=== PATIENT | female | born 1985 | race Caucasian/White ===

== ENCOUNTER 2021-10-01 14:30 | Emergency (ER) | payer OTHER ==
[~2021-10-01] VITALS: Ht 157.5 cm; Wt 113.4 kg
--- NOTE | 2021-10-01 14:40 | NUR ---
BIBS FOR C/O CHEST PAIN SINCE YESTERDAY. IN ROOM AIR AND DENIES SOB. RESPIRATION REGULAR AND UNLABORED. ATTACHED TO THE MONITOR. WILL CONTINUE TO MONITOR THE PATIENT.
--- NOTE | 2021-10-01 15:20 | NUR ---
STUDY COORDINATOR AT THE BEDSIDE
--- NOTE | 2021-10-01 15:28 | NUR ---
US TECH AT THE BEDSIDE
[2021-10-01 15:58] LABS: BASOPHILS % (AUTO) 0.2 % (0.0-2.0); HEMATOCRIT 38 % (33-45); HEMOGLOBIN 11.9 g/dL (11.5-14.8); LYMPHOCYTES # (AUTO) 2.6 K/uL (0.8-4.8); LYMPHOCYTES % (AUTO) 22.3 % (20.0-44.0); MEAN CORPUSCULAR HGB CONC 31 g/dl (31.0-36.0); MEAN CORPUSCULAR VOLUME 74 fL (82-100); MONOCYTES # (AUTO) 0.7 K/uL (0.1-1.30); MONOCYTES % (AUTO) 6.3 % (2.0-12.0); NEUTROPHILS # (AUTO) 8.3 K/uL (1.8-8.9); NEUTROPHILS % (AUTO) 70.2 % (43.0-81.0); PLATELET COUNT (AUTO) 250 K/uL (150-450); RED BLOOD CELL COUNT(AUTO) 5.13 MIL/uL (4.0-5.2); WHITE BLOOD COUNT (AUTO) 11.8 K/uL (4.3-11.0)
[2021-10-01 16:11] LABS: CALCIUM, SERUM 9.3 mg/dL (8.5-10.1); CARBON DIOXIDE 29 mmol/L (21-32); CHLORIDE 106 mmol/L (98-107); CREATININE 0.8 mg/dL (0.6-1.3); GLUCOSE 96 mg/dL (74-106); POTASSIUM 3.6 mmol/L (3.5-5.1); SODIUM SERUM 140 mmol/L (136-145); UREA NITROGEN, BLOOD 13 mg/dL (7-18)
[2021-10-01 16:12] LABS: D-DIMER 0.38 mg/L(FEU (0.17-0.50)
[2021-10-01 18:13] VITALS: BP 118/70
--- NOTE | 2021-10-01 18:13 | NUR ---
Patient discharged to home in stable condition. Written and verbal after care instructions given. Patient verbalizes understanding of instruction.
== END 2021-10-01 18:13 | disposition home or self-care (01) ==
LOC: ER 14:33
DX: R07.89 Other chest pain (principal); M79.604 Pain in right leg; Z88.0 Allergy status to penicillin; Z88.2 Allergy status to sulfonamides
CPT/HCPCS: 36415; 71045-TC; 80048-TC; 83880; 84484-TC; 85025-TC; 85378-TC; 85730-TC; 93971-TC

== ENCOUNTER 2022-06-16 13:47 | Emergency (ER) | payer OTHER ==
[~2022-06-16] VITALS: Ht 154.9 cm; Wt 114.8 kg
--- NOTE | 2022-06-16 14:00 | NUR ---
"Chest pain started yesterday goes to right arm."
--- NOTE | 2022-06-16 14:02 | NUR ---
EMT AT BEDSIDE FOR EKG
--- NOTE | 2022-06-16 14:15 | NUR ---
ESTABLISHED IV LINE AT LEFT AC 20G , BLOOD SAMPLE OBTAINED SENT TO LAB
--- NOTE | 2022-06-16 14:16 | NUR ---
SETTLEMENT WORKER AT BEDSIDE
[2022-06-16 14:44] LABS: BASOPHILS % (AUTO) 0.3 % (0.0-2.0); EOSINOPHILS % (AUTO) 1.6 % (0.0-6.0); HEMATOCRIT 37 % (33-45); HEMOGLOBIN 11.9 g/dL (11.5-14.8); LYMPHOCYTES # (AUTO) 2.4 K/uL (0.8-4.8); LYMPHOCYTES % (AUTO) 24.4 % (20.0-44.0); MEAN CORPUSCULAR HGB CONC 32 g/dl (31.0-36.0); MEAN CORPUSCULAR VOLUME 77 fL (82-100); MONOCYTES # (AUTO) 0.8 K/uL (0.1-1.30); MONOCYTES % (AUTO) 8.2 % (2.0-12.0); NEUTROPHILS # (AUTO) 6.3 K/uL (1.8-8.9); NEUTROPHILS % (AUTO) 65.5 % (43.0-81.0); PLATELET COUNT (AUTO) 226 K/uL (150-450); RED BLOOD CELL COUNT(AUTO) 4.89 MIL/uL (4.0-5.2); WHITE BLOOD COUNT (AUTO) 9.7 K/uL (4.3-11.0)
[2022-06-16 15:00] LABS: CALCIUM, SERUM 8.7 mg/dL (8.5-10.1); CARBON DIOXIDE 30 mmol/L (21-32); CHLORIDE 103 mmol/L (98-107); CREATININE 0.7 mg/dL (0.6-1.3); GLUCOSE 85 mg/dL (74-106); POTASSIUM 4.2 mmol/L (3.5-5.1); SODIUM SERUM 139 mmol/L (136-145); UREA NITROGEN, BLOOD 9 mg/dL (7-18)
[2022-06-16] MEDS ORDERED: KETOROLAC TROMETHAMINE INJ 30 MG/ML VIAL IV ONE (16:00)
[2022-06-16] MEDS ORDERED: KETOROLAC TROMETHAMINE 15 MG/ML VIAL ONE (16:01)
[2022-06-16 16:27] LABS: ALBUMIN 3.5 g/dL (3.4-5.0); BILIRUBIN,DIRECT 0.1 mg/dL (0.0-0.2); BILIRUBIN,TOTAL 0.2 mg/dL (0.2-1.0); TOTAL PROTEIN, SERUM 7.3 g/dL (6.4-8.2)
[2022-06-16 17:45] VITALS: BP 135/74
--- NOTE | 2022-06-16 17:45 | NUR ---
IV removed. Catheter intact and site benign. Pressure and 4x4 applied to site. No bleeding noted.
--- NOTE | 2022-06-16 17:45 | NUR ---
Patient discharged to home in stable condition. Written and verbal after care instructions given. Patient verbalizes understanding of instruction.
== END 2022-06-16 17:49 | disposition home or self-care (01) ==
LOC: ER 13:48
DX: R07.9 Chest pain, unspecified (principal); Z88.0 Allergy status to penicillin; Z88.2 Allergy status to sulfonamides
CPT/HCPCS: 36415; 71045-TC; 80048-TC; 80076-TC; 83880; 84484-TC; 85025-TC; 85378-TC; J1885

== ENCOUNTER 2024-08-26 14:02 | Emergency (ER) | payer OTHER ==
[~2024-08-26] VITALS: Ht 157.5 cm; Wt 136.1 kg
[2024-08-26 14:26] VITALS: TEMP 98
[2024-08-26 15:27] LABS: BASOPHILS # (AUTO) 0.2 K/uL (0.0-0.2); BASOPHILS % (AUTO) 1.1 % (0.0-2.0); EOSINOPHILS # (AUTO) 0.1 K/uL (0.0-0.7); EOSINOPHILS % (AUTO) 0.4 % (0.0-6.0); HEMATOCRIT 35 % (33-45); HEMOGLOBIN 11.3 g/dL (11.5-14.8); LYMPHOCYTES # (AUTO) 1.3 K/uL (0.8-4.8); LYMPHOCYTES % (AUTO) 8.6 % (20.0-44.0); MEAN CORPUSCULAR HEMOGLOBIN 24 PG (26.0-33.0); MEAN CORPUSCULAR HGB CONC 33 g/dl (31.0-36.0); MEAN CORPUSCULAR VOLUME 75 fL (82-100); MONOCYTES # (AUTO) 1.1 K/uL (0.1-1.30); MONOCYTES % (AUTO) 7.6 % (2.0-12.0); NEUTROPHILS # (AUTO) 12.4 K/uL (1.8-8.9); NEUTROPHILS % (AUTO) 82.3 % (43.0-81.0); PLATELET COUNT (AUTO) 223 K/uL (150-450); RED BLOOD CELL COUNT(AUTO) 4.63 MIL/uL (4.0-5.2); RED CELL DISTRIBUTION WIDTH 17.3 % (11.5-15.0); WHITE BLOOD COUNT (AUTO) 15.1 K/uL (4.3-11.0)
[2024-08-26 15:37] LABS: CALCIUM, SERUM 9.3 mg/dL (8.5-10.1); CREATININE 0.8 mg/dL (0.6-1.3); POTASSIUM 3.7 mmol/L (3.5-5.1)
[2024-08-26] MEDS ORDERED: IOHEXOL-350 100 ML VIAL IV ONE (16:21)
[2024-08-26] MEDS ORDERED: IV NS 0.9% 250 ML IV ONE (16:21)
[2024-08-26] MEDS ORDERED: CT SWABBABLE VALVE TRANS SET 1 EA INFUS.SET MC ONE (16:21)
[2024-08-26] MEDS ORDERED: diphenhydrAMINE HCL 25 MG CAPSULE ONE (16:27)
[2024-08-26] MEDS: diphenhydrAMINE HCL 25 MG CAPSULE PO ONE (16:32)
[2024-08-26 17:45] LABS: BAND % (MANUAL) 1 % (0.0-5.0); LYMPHOCYTES % (MANUAL) 8 % (16-48); MONOCYTES % (MANUAL) 7 % (0-11.0); NEUTROPHILS % (MANUAL) 84 (42-76)
[2024-08-26 17:46] LABS: ANISOCYTOSIS 1+; PLATELET ESTIMATE ADEQU; TARGET CELLS RARE
[2024-08-26 17:54] LABS: APPEARANCE,URINE CLEAR (CLEAR); BILIRUBIN,URINE NEGATIVE (NEGATIVE); BLOOD, URINE TRACE-INTA Ery/uL (NEGATIVE); COLOR,URINE YELLOW (YELLOW); KETONES,URINE NEGATIVE (NEGATIVE); LEUKOCYTE ESTERASE ,URINE NEGATIVE (NEGATIVE); NITRITE, URINE NEGATIVE (NEGATIVE); PH,URINE 5.5 (5.0-8.0); PROTEIN,URINE TRACE mg/dl (NEGATIVE); UGLUCOSE NEGATIVE (NEGATIVE); UROBILINOGEN,URINE 0.2 EU/dL (0.2)
[2024-08-26 18:48] LABS: ADD URINE CULTURE NO; BACTERIA,URINE None seen /HPF (None Seen); WBC,URINE 0-2 /HPF (0-3)
[2024-08-26 18:49] LABS: MUCUS,URINE Few /LPF (None Seen)
[2024-08-26 19:04] VITALS: BP 142/95; O2SAT 99
== END 2024-08-26 18:55 | disposition home or self-care (01) ==
LOC: ER 14:09
DX: R07.89 Other chest pain (principal); M79.604 Pain in right leg; M79.605 Pain in left leg; M79.89 Other specified soft tissue disorders; M54.9 Dorsalgia, unspecified; R00.0 Tachycardia, unspecified; R06.02 Shortness of breath; R30.9 Painful micturition, unspecified; I11.0 Hypertensive heart disease with heart failure; I50.9 Heart failure, unspecified; I25.2 Old myocardial infarction; Z88.0 Allergy status to penicillin; Z88.2 Allergy status to sulfonamides
CPT/HCPCS: 99285; 71275; 71045; 93005; 85025; 80048; 85378; 81001; 36415; 84484; 83880; 93971 ×2; 85007; Q0163; J7050; Q9967

== ENCOUNTER 2024-09-12 13:42 | Inpatient (IN) | payer MEDICAID, OTHER ==
[~2024-09-12] VITALS: Ht 157.5 cm; Wt 141.1 kg
[2024-09-12 14:46] LABS: BASOPHILS # (AUTO) 0.1 K/uL (0.0-0.2); BASOPHILS % (AUTO) 1.3 % (0.0-2.0); EOSINOPHILS # (AUTO) 0.2 K/uL (0.0-0.7); EOSINOPHILS % (AUTO) 2.7 % (0.0-6.0); HEMATOCRIT 32 % (33-45); HEMOGLOBIN 10.3 g/dL (11.5-14.8); LYMPHOCYTES # (AUTO) 2.6 K/uL (0.8-4.8); LYMPHOCYTES % (AUTO) 29.9 % (20.0-44.0); MEAN CORPUSCULAR HEMOGLOBIN 24 PG (26.0-33.0); MEAN CORPUSCULAR HGB CONC 32 g/dl (31.0-36.0); MEAN CORPUSCULAR VOLUME 74 fL (82-100); MONOCYTES # (AUTO) 0.7 K/uL (0.1-1.30); MONOCYTES % (AUTO) 8.5 % (2.0-12.0); NEUTROPHILS % (AUTO) 57.6 % (43.0-81.0); PLATELET COUNT (AUTO) 285 K/uL (150-450); RED CELL DISTRIBUTION WIDTH 17.6 % (11.5-15.0); WHITE BLOOD COUNT (AUTO) 8.8 K/uL (4.3-11.0)
[2024-09-12] MEDS ORDERED: ASPIRIN 325 MG TABLET ONE (14:53)
[2024-09-12] MEDS: ASPIRIN 325 MG TABLET PO ONE (14:54)
[2024-09-12 14:59] LABS: CALCIUM, SERUM 9.2 mg/dL (8.5-10.1); CARBON DIOXIDE 27 mmol/L (21-32); CHLORIDE 106 mmol/L (98-107); CREATININE 0.9 mg/dL (0.6-1.3); GLUCOSE 103 mg/dL (74-106); POTASSIUM 3.8 mmol/L (3.5-5.1); SODIUM SERUM 142 mmol/L (136-145); UREA NITROGEN, BLOOD 11 mg/dL (7-18)
[2024-09-12] MEDS ORDERED: APIX5TAB PO (15:01)
[2024-09-12 15:02] LABS: INR 1.04 (0.91-1.10); PARTIAL THROMBOPLASTIN TIME 29.9 SEC (24.3-34.3)
[2024-09-12 15:12] LABS: ALANINE AMINOTRANSFERASE 28 U/L (12-78); ALBUMIN 3.1 g/dL (3.4-5.0); ALKALINE PHOSPHATASE 115 U/L (46-116); ASPARTATE AMINOTRANSFERASE 23 U/L (15-37); BILIRUBIN,DIRECT 0.1 mg/dL (0.0-0.2); BILIRUBIN,TOTAL 0.2 mg/dL (0.2-1.0); NT-PRO BNP 14 pg/mL (0-125); TOTAL PROTEIN, SERUM 7.6 g/dL (6.4-8.2)
[2024-09-12] MEDS ORDERED: GUAIFENESIN/CODEINE 10 ML UDC PO PRN (17:30)
[2024-09-12] MEDS ORDERED: ONDANSETRON HCL/PF 4 MG/2 ML VIAL IVP PRN (17:30)
[2024-09-12] MEDS ORDERED: ZOLPIDEM TARTRATE 5 MG TABLET PO PRN (17:30)
[2024-09-12] MEDS ORDERED: Z GUARD REMEDY 4 OZ OINT TP PRN (17:30)
[2024-09-12] MEDS ORDERED: ACETAMINOPHEN 325 MG TABLET PO PRN (17:30)
[2024-09-12] MEDS ORDERED: MAG HYDROX/AL HYDROX/SIMETH 30 ML UDC PO PRN (17:30)
[2024-09-12 19:00] VITALS: BP 119/56; TEMP 97.9; O2SAT 99
[2024-09-12 20:00] VITALS: BP 101/60; TEMP 98.1; O2SAT 98
[2024-09-12] MEDS: CLINDAMYCIN 600 MG in IV NS 0.9% 46 ML IV SCH (22:35)
[2024-09-13] VITALS: BP 103/60; TEMP 97.5; O2SAT 96
[2024-09-13] MEDS: METHOCARBAMOL (500MG) 500 MG TABLET PO SCH (00:31)
[2024-09-13 03:08] LABS: BASOPHILS % (AUTO) 0.6 % (0.0-2.0); EOSINOPHILS # (AUTO) 0.3 K/uL (0.0-0.7); EOSINOPHILS % (AUTO) 3.7 % (0.0-6.0); HEMATOCRIT 30 % (33-45); HEMOGLOBIN 9.7 g/dL (11.5-14.8); LYMPHOCYTES # (AUTO) 2.2 K/uL (0.8-4.8); LYMPHOCYTES % (AUTO) 30.2 % (20.0-44.0); MEAN CORPUSCULAR HEMOGLOBIN 24 PG (26.0-33.0); MEAN CORPUSCULAR HGB CONC 32 g/dl (31.0-36.0); MEAN CORPUSCULAR VOLUME 74 fL (82-100); MONOCYTES # (AUTO) 0.7 K/uL (0.1-1.30); MONOCYTES % (AUTO) 9.2 % (2.0-12.0); NEUTROPHILS % (AUTO) 56.3 % (43.0-81.0); PLATELET COUNT (AUTO) 261 K/uL (150-450); RED BLOOD CELL COUNT(AUTO) 4.09 MIL/uL (4.0-5.2); RED CELL DISTRIBUTION WIDTH 17.8 % (11.5-15.0); WHITE BLOOD COUNT (AUTO) 7.1 K/uL (4.3-11.0)
[2024-09-13 03:19] LABS: ALBUMIN 2.7 g/dL (3.4-5.0); BILIRUBIN,TOTAL 0.3 mg/dL (0.2-1.0); CALCIUM, SERUM 8.7 mg/dL (8.5-10.1); CREATININE 0.8 mg/dL (0.6-1.3); PHOSPHORUS 4.1 mg/dL (2.5-4.9); POTASSIUM 3.7 mmol/L (3.5-5.1); TOTAL PROTEIN, SERUM 6.7 g/dL (6.4-8.2)
[2024-09-13 04:00] VITALS: BP 110/70; TEMP 97.7; O2SAT 98
[2024-09-13 07:30] VITALS: BP 97/49; TEMP 97.5; O2SAT 98
[2024-09-13] MEDS: APIXABAN 5 MG TABLET PO SCH (08:15)
[2024-09-13] MEDS: diphenhydrAMINE HCL 50 MG/ML VIAL IV ONE (14:18)
[2024-09-13] MEDS: methylPREDNISolone SOD SUCC 125 MG/2ML VIAL IV ONE (14:18)
[2024-09-13] MEDS: FAMOTIDINE/PF INJ 20 MG/2 ML VIAL IV ONE (14:19)
[2024-09-13] MEDS ORDERED: IV NS 0.9% 250 ML IV ONE (14:22)
[2024-09-13] MEDS ORDERED: IOHEXOL-350 100 ML VIAL IV ONE (14:22)
[2024-09-13] MEDS ORDERED: CT SWABBABLE VALVE TRANS SET 1 EA INFUS.SET MC ONE (14:22)
[2024-09-13 16:00] VITALS: BP 134/48; TEMP 98.8; O2SAT 97
[2024-09-13 18:07] LABS: THYROID STIMULATING HORMONE 4.55 uIU/mL (0.358-3.74)
[2024-09-13 20:00] VITALS: BP 121/60; TEMP 98.1; O2SAT 97
[2024-09-14] VITALS: BP 109/52; TEMP 98.1; O2SAT 97; O2SAT 98
[2024-09-14] MEDS: MAGNESIUM HYDROXIDE 30 ML UDC PO PRN (00:44)
[2024-09-14 04:00] VITALS: BP 114/61; TEMP 97.5; O2SAT 96
[2024-09-14 06:45] LABS: INR 1.03 (0.91-1.10); PROTHROMBIN TIME 10.9 SECS (9.2-11.1)
[2024-09-14 06:50] LABS: CALCIUM, SERUM 8.7 mg/dL (8.5-10.1); CREATININE 0.8 mg/dL (0.6-1.3); POTASSIUM 3.9 mmol/L (3.5-5.1)
[2024-09-14 07:30] VITALS: BP 134/66; TEMP 99.1; O2SAT 97
[2024-09-14 08:32] LABS: BASOPHILS % (AUTO) 0.2 % (0.0-2.0); HEMATOCRIT 32 % (33-45); HEMOGLOBIN 10.2 g/dL (11.5-14.8); LYMPHOCYTES % (AUTO) 9.4 % (20.0-44.0); MEAN CORPUSCULAR HEMOGLOBIN 24 PG (26.0-33.0); MEAN CORPUSCULAR HGB CONC 32 g/dl (31.0-36.0); MEAN CORPUSCULAR VOLUME 74 fL (82-100); MONOCYTES # (AUTO) 0.5 K/uL (0.1-1.30); MONOCYTES % (AUTO) 4.4 % (2.0-12.0); NEUTROPHILS # (AUTO) 9.2 K/uL (1.8-8.9); PLATELET COUNT (AUTO) 288 K/uL (150-450); RED BLOOD CELL COUNT(AUTO) 4.35 MIL/uL (4.0-5.2); WHITE BLOOD COUNT (AUTO) 10.7 K/uL (4.3-11.0)
[2024-09-14] MEDS ORDERED: IOHEXOL-350 100 ML VIAL IV ONE (08:33)
[2024-09-14] MEDS ORDERED: CT SWABBABLE VALVE TRANS SET 1 EA INFUS.SET MC ONE (08:33)
[2024-09-14] MEDS ORDERED: IV NS 0.9% 250 ML IV ONE (08:33)
[2024-09-14] MEDS: diphenhydrAMINE HCL 50 MG/ML VIAL IV ONE (09:40)
[2024-09-14 10:14] LABS: ANISOCYTOSIS 2+
[2024-09-14] MEDS: HEPARIN INFUSION/D5W 500 ML IV PRN (10:28)
[2024-09-14] MEDS: HEPARIN SODIUM, PORCINE 5000 UNITS/1 ML VIAL SQ SCH (10:29)
[2024-09-14] MEDS ORDERED: HEPARIN SODIUM, PORCINE 5000 UNITS/1 ML VIAL SQ ONE (10:30)
[2024-09-14] MEDS: HEPARIN SODIUM, PORCINE 5000 UNITS/1 ML VIAL IV ONE (10:44)
[2024-09-14] MEDS ORDERED: METH500T6 PO (14:15)
[2024-09-14] MEDS ORDERED: [UNRECOGNIZED DRUG - CODE] IV (14:15)
[2024-09-14] MEDS: SOD FERRIC GLUC 125 MG in IV NS 0.9% 100 ML IV SCH (18:01)
[2024-09-14 20:00] VITALS: BP 113/56; TEMP 97.9; O2SAT 98
[2024-09-15 08:10] LABS: FOLIC ACID 12.4 ng/mL (>3.0); HOMOCYSTEINE, PLASMA 16.7 umol/L (0.0-14.5); IMMUNOGLOBULIN A, SERUM 268 mg/dL (87-352); IMMUNOGLOBULIN G, SERUM 1161 mg/dL (586-1602); IMMUNOGLOBULIN M, SERUM 74 mg/dL (26-217)
[2024-09-15 10:07] LABS: FREE KAPPA LT CHAINS SERUM 17.6 mg/L (3.3-19.4); FREE LAMBDA LT CHAIN SERUM 22.6 mg/L (5.7-26.3); KAPPA/LAMBDA RATIO SERUM 0.78 (0.26-1.65)
[2024-09-15 16:10] LABS: *SPE A/G RATIO 0.8 (0.7-1.7); *SPE ALPHA-1-GLOBULIN 0.3 g/dL (0.0-0.4); *SPE ALPHA-2-GLOBULIN 0.7 g/dL (0.4-1.0); *SPE BETA GLOBULIN 1.6 g/dL (0.7-1.3); *SPE GLOBULIN, TOTAL 3.9 g/dL (2.2-3.9); *SPE M-SPIKE Not Observed g/dL (Not Observed); *SPE PROTEIN TOTAL 6.9 g/dL (6.0-8.5); *SPEGAMMA GLOBULIN 1.2 g/dL (0.4-1.8)
[2024-09-16 14:07] LABS: *CARD ANTI-CARDIOLIPIN AB IgG <9 GPL U/mL (0-14); *CARD ANTI-CARDIOLIPIN AB IgM <9 MPL U/mL (0-12)
[2024-09-16 16:11] LABS: BETA-2 MICROGLOBULIN, SERUM 1.7 mg/L (0.6-2.4)
[2024-09-17 11:11] LABS: *ANTITHROMBIN III AG 78 % (72-124); *DILUTE PROTHROMBIN TIME (dPT) 44.2 sec (0.0-47.6); *THROMBIN TIME 18.1 sec (0.0-23.0); *dPT CONFIRM RATIO 1.16 Ratio (0.00-1.34); *dRVVT 73.6 sec (0.0-47.0); ANTITHROMBIN III ACTIVITY 66 % (75-135); PROTEIN C ACTIVITY 187 % (73-180)
== END 2024-09-15 01:15 | disposition short-term general hospital (02) | DRG 197 ==
LOC: ER 13:45 → TELE 18:25
PROVIDERS: ADMIT Nurse Practitioner Acute Care; ATTEND Nurse Practitioner Acute Care
DX: I82.422 Acute embolism and thrombosis of left iliac vein (principal); I11.0 Hypertensive heart disease with heart failure; E44.1 Mild protein-calorie malnutrition; I82.412 Acute embolism and thrombosis of left femoral vein; E88.09 Other disorders of plasma-protein metabolism, not elsewhere classified; I50.32 Chronic diastolic (congestive) heart failure; R16.0 Hepatomegaly, not elsewhere classified; Z68.43 Body mass index [BMI] 50.0-59.9, adult; Z79.01 Long term (current) use of anticoagulants; I48.91 Unspecified atrial fibrillation; I25.10 Atherosclerotic heart disease of native coronary artery without angina pectoris; G47.33 Obstructive sleep apnea (adult) (pediatric); Z88.0 Allergy status to penicillin; Z88.2 Allergy status to sulfonamides; N83.201 Unspecified ovarian cyst, right side; Z86.711 Personal history of pulmonary embolism; D64.9 Anemia, unspecified; E66.01 Morbid (severe) obesity due to excess calories
CPT/HCPCS: 36415; 71045-TC; 76856-TC; 80048-TC; 80053-TC; 80076-TC; 81240; 81241; 82232; 82378; 82607-TC; 82728-TC; 82784; 83090; 83540-TC; 83735-TC; 83880; 84100-TC; 84155; 84165; 84443-TC; 84484-TC; 85025-TC; 85300; 85301; 85303; 85378-TC; 85610-TC; 85613; 85670; 85705; 85730-TC; 85732; 86147; 86304; 86334; 86850-TC; 93307-TC; 93971-TC; A4223; G0378; J1200; J1644; J2916; J2919; J3490; J7030; J7050; Q9967